=== PATIENT | male | born 1995 | race Caucasian/White ===

== ENCOUNTER 2018-06-09 11:17 | Emergency (ER) | payer SELFPAY ==
[~2018-06-09] VITALS: Ht 180.3 cm; Wt 70.5 kg
[~2018-06-09 11:17] MED LIST: FERROUS SU325 MG/TAB PO; PROTONIX 40MG T40 MG PO
[2018-06-09 11:31] VITALS: TEMP 98.2
[2018-06-09] MEDS ORDERED: ZYRTEC 10MG10 MG PO (11:50)
[2018-06-09 12:19] LABS: BASO % 0.6 % (0.0-2.0); EOS # 0.1 (0.0-0.7); EOS % 2.1 % (0-4.0); GRAN # 4.5 (1.4-6.5); LYMPH % 16.5 % (20.0-51.0); MEAN CELL VOLUME 69 fl (80.0-100.0); MEAN CORPUSCULAR HGB CONC 27 g/dl (33.0-37.0); MONO # 0.6 (0.1-0.6); MONO % 9.5 % (1.7-9.3); PLATELET COUNT 293 K/mm3 (130-400); RED BLOOD COUNT 4.97 M/mm3 (4.20-5.60); REDCELL DISTRIBUTION WIDTH-CV 29.8 % (11.5-14.5)
[2018-06-09 12:23] LABS: HEMATOCRIT 34.5 % (42.0-52.0); HEMOGLOBIN 9.4 g/dl (13.5-18.0); MEAN CORPUSCULAR HEMOGLOBIN 19 pg (27.0-31.0)
[2018-06-09 12:27] LABS: ALANINE AMINOTRANSFERASE 33 U/L (21-72); ALBUMIN 5.2 gm/dL (3.5-5.0); ALKALINE PHOSPHATASE 39 U/L (50-136); ANION GAP 11 mmol/L (7-16); AST,SGOT 25 U/L (15-37); BILIRUBIN,TOTAL 1.6 mg/dL (0.0-1.0); BLOOD UREA NITROGEN 14 mg/dL (9-20); CARBON DIOXIDE 27 mmol/L (22-30); CHLORIDE 102 mmol/L (98-107); CREATININE, serum 0.76 mg/dL (0.66-1.25); GLUCOSE 97 mg/dL (74-106); SODIUM 141 mmol/L (137-145)
[2018-06-09 12:33] LABS: C-REACTIVE PROTEIN < 0.5 mg/dL (0.0-0.9)
[2018-06-09 12:58] VITALS: BP 117/64; PULSE 64
== END 2018-06-09 12:59 | disposition home or self-care (01) ==
LOC: COL.ER 11:17
PROVIDERS: Family Medicine
DX: K92.2 Gastrointestinal hemorrhage, unspecified (principal); D64.9 Anemia, unspecified
CPT/HCPCS: J7030

== ENCOUNTER 2018-06-12 13:54 | Emergency (ER) | payer SELFPAY ==
[~2018-06-12] VITALS: Ht 180.3 cm; Wt 70.5 kg
[~2018-06-12 13:54] MED LIST changes: +ZYRTEC 10MG10 MG PO
[2018-06-12 13:59] VITALS: TEMP 98.1
[2018-06-12 14:30] LABS: COLLECTION METHOD CLEAN CATCH
[2018-06-12 14:38] LABS: MUCOUS Present /lpf; PH 5 (5-8); SQUAMOUS EPITHELIAL 0-2 /hpf; URINE APPEARANCE Clear; URINE BACTERIA None Seen /hpf; URINE BILIRUBIN Negative (NEGATIVE); URINE BLOOD Negative (NEGATIVE); URINE COLOR Yellow; URINE GLUCOSE Negative (NEGATIVE); URINE KETONE Negative (NEGATIVE); URINE LEUKOCYTE ESTERASE Negative (NEGATIVE); URINE NITRATE Negative (NEGATIVE); URINE PROTEIN(semi-quant) Negative (NEGATIVE); URINE RBC 0-2 /hpf; URINE UROBILINOGEN Negative (NEGATIVE)
[2018-06-12 14:40] LABS: BASO % 0.5 % (0.0-2.0); EOS # 0.2 (0.0-0.7); EOS % 3.2 % (0-4.0); GRAN # 5.1 (1.4-6.5); GRAN % 70.1 % (42.2-75.2); HEMATOCRIT 33.5 % (42.0-52.0); HEMOGLOBIN 9.2 g/dl (13.5-18.0); LYMPH # 1.2 (1.2-3.4); MEAN CELL VOLUME 70 fl (80.0-100.0); MEAN CORPUSCULAR HEMOGLOBIN 19 pg (27.0-31.0); MEAN CORPUSCULAR HGB CONC 28 g/dl (33.0-37.0); MONO # 0.7 (0.1-0.6); MONO % 8.9 % (1.7-9.3); PLATELET COUNT 265 K/mm3 (130-400); RED BLOOD COUNT 4.76 M/mm3 (4.20-5.60); REDCELL DISTRIBUTION WIDTH-CV 29.2 % (11.5-14.5)
[2018-06-12] MEDS ORDERED: CARAFATE 1GM1 G PO (14:51)
[2018-06-12 15:00] LABS: ALANINE AMINOTRANSFERASE 26 U/L (21-72); ALBUMIN 4.7 gm/dL (3.5-5.0); ALKALINE PHOSPHATASE 48 U/L (50-136); ANION GAP 7 mmol/L (7-16); AST,SGOT 21 U/L (15-37); BLOOD UREA NITROGEN 12 mg/dL (9-20); C-REACTIVE PROTEIN < 0.5 mg/dL (0.0-0.9); CALCIUM 9.3 mg/dL (8.4-10.2); CARBON DIOXIDE 29 mmol/L (22-30); CHLORIDE 104 mmol/L (98-107); CREATININE, serum 0.73 mg/dL (0.66-1.25); GLUCOSE 103 mg/dL (74-106); LIPASE 34 U/L (23-300); POTASSIUM 3.7 mmol/L (3.4-5.0); SODIUM 140 mmol/L (137-145); TOTAL PROTEIN 8.1 gm/dL (6.4-8.2)
[2018-06-12 15:10] VITALS: BP 119/81; PULSE 66
== END 2018-06-12 15:11 | disposition home or self-care (01) ==
LOC: COL.ER 13:54
PROVIDERS: Physician Assistant
DX: R10.13 Epigastric pain (principal); Z87.891 Personal history of nicotine dependence

== ENCOUNTER 2018-08-19 06:49 | Emergency (ER) | payer SELFPAY ==
[~2018-08-19] VITALS: Ht 180.3 cm; Wt 72.7 kg
[~2018-08-19 06:49] MED LIST changes: +CARAFATE 1GM1 G PO
[2018-08-19 06:54] VITALS: TEMP 97.6
[2018-08-19 07:11] LABS: BASO # 0.1 (0.0-0.2); BASO % 0.9 % (0.0-2.0); EOS # 0.1 (0.0-0.7); EOS % 2.1 % (0-4.0); GRAN # 2.7 (1.4-6.5); GRAN % 50.6 % (42.2-75.2); HEMATOCRIT 34.5 % (42.0-52.0); HEMOGLOBIN 9.7 g/dl (13.5-18.0); LYMPH # 1.8 (1.2-3.4); LYMPH % 33.3 % (20.0-51.0); MEAN CELL VOLUME 66 fl (80.0-100.0); MEAN CORPUSCULAR HEMOGLOBIN 19 pg (27.0-31.0); MEAN CORPUSCULAR HGB CONC 28 g/dl (33.0-37.0); MEAN PLATELET VOLUME 9.5 fl (7.4-10.4); MONO # 0.7 (0.1-0.6); MONO % 12.9 % (1.7-9.3); PLATELET COUNT 291 K/mm3 (130-400); RED BLOOD COUNT 5.22 M/mm3 (4.20-5.60); REDCELL DISTRIBUTION WIDTH-CV 16.8 % (11.5-14.5)
[2018-08-19 07:24] LABS: ALBUMIN 4.6 gm/dL (3.5-5.0); BILIRUBIN,TOTAL 0.7 mg/dL (0.0-1.0); CALCIUM 9.5 mg/dL (8.4-10.2); CREATININE, serum 0.86 mg/dL (0.66-1.25); POTASSIUM 3.6 mmol/L (3.4-5.0)
[2018-08-19 09:06] VITALS: BP 115/59; PULSE 60
--- NOTE | 2018-08-19 10:43 | NUR ---
SW consulted for Financial concerns and self pay concern. SW's met with patient about director of student financial services. SW made a referral to Connie to contact patient. Patient no longer works at the [employer]. Works for [employer]. Patient indicated that his contact info is
== END 2018-08-19 09:07 | disposition home or self-care (01) ==
LOC: COL.ER 06:49
PROVIDERS: Emergency Medicine
DX: K92.2 Gastrointestinal hemorrhage, unspecified (principal)

== ENCOUNTER 2019-01-21 23:23 | Inpatient (IN) | payer SELFPAY ==
[~2019-01-21] VITALS: Ht 180.3 cm; Wt 72.1 kg
[2019-01-22] VITALS (14 sets, daily range): BP systolic 103–128; BP diastolic 43–69; PULSE 50–86; TEMP 97.4–98
[2019-01-22 00:02] LABS: BASO % 0.7 % (0.0-2.0); EOS # 0.1 (0.0-0.7); EOS % 1.4 % (0-4.0); GRAN # 2.2 (1.4-6.5); GRAN % 50.9 % (42.2-75.2); LYMPH # 1.5 (1.2-3.4); LYMPH % 34.6 % (20.0-51.0); MEAN CELL VOLUME 60 fl (80.0-100.0); MEAN CORPUSCULAR HGB CONC 25 g/dl (33.0-37.0); MEAN PLATELET VOLUME 10.7 fl (7.4-10.4); MONO # 0.5 (0.1-0.6); MONO % 12.2 % (1.7-9.3); PLATELET COUNT 275 K/mm3 (130-400); RED BLOOD COUNT 3.76 M/mm3 (4.20-5.60); REDCELL DISTRIBUTION WIDTH-CV 19.8 % (11.5-14.5)
[2019-01-22 00:03] LABS: HEMATOCRIT 22.6 % (42.0-52.0); MEAN CORPUSCULAR HEMOGLOBIN 15 pg (27.0-31.0)
[2019-01-22 00:04] LABS: HEMOGLOBIN 5.7 g/dl (13.5-18.0)
[2019-01-22 00:13] LABS: ALBUMIN 4.4 gm/dL (3.5-5.0); BILIRUBIN,TOTAL 0.7 mg/dL (0.0-1.0); CALCIUM 9.2 mg/dL (8.4-10.2); CREATININE, serum 0.8 (0.66-1.25); POTASSIUM 3.7 mmol/L (3.4-5.0); TOTAL PROTEIN 7.3 gm/dL (6.4-8.2)
--- NOTE | 2019-01-22 01:00 | NUR ---
Pt arrived to room 308, transferred per wheelchair by ED staff. Pt awake, a&o, cooperative c cares. Pt denies pain or any other c/o at this time. IV patent. Pt oriented to room, unit policies et current POC. Questions invited et answered, pt verbalizes understanding. No needs at this time. Call light in reach, will continue c admit process.
[2019-01-22 01:08] LABS: INR 1.5 (0.8-3.0); PROTHROMBIN TIME 17.9 SECONDS (9.7-12.8)
[2019-01-22 01:11] LABS: PARTIAL THROMBOPLASTIN TIME 29.1 SECONDS (26.0-37.0)
--- NOTE | 2019-01-22 02:10 | NUR ---
Consent obtained et first unit PRBC transfusion started at this time. Reviewed s/s transfusion reaction c pt, pt verbalizes understanding. VS WNL. Will remain at bedside for first 15min.
--- NOTE | 2019-01-22 04:45 | NUR ---
First unit PRBC complete. No s/s transfusion reaction. VS WNL.
--- NOTE | 2019-01-22 05:20 | NUR ---
Second unit PRBC transfusion started at this time. VS WNL. Will remain at bedside for first 15min.
--- NOTE | 2019-01-22 07:34 | NUR ---
Transfusion complete. Patient tolerated well. VSS. A&O. No further needs expressed from patient. Call light within reach
--- NOTE | 2019-01-22 07:45 | NUR ---
Assessment complete. Patient A&Ox4. Denies pain and discomfort. IV CDI, blood transfusion infusing, patient tolerating well. VSS. No further needs expressed from patient. Call light within reach
[2019-01-22 08:00] LABS: COLLECTION METHOD CLEAN CATCH
[2019-01-22 08:07] LABS: MUCOUS Present /lpf; PH 6 (5-8); SQUAMOUS EPITHELIAL None Seen /hpf; URINE APPEARANCE Clear; URINE BACTERIA None Seen /hpf; URINE BILIRUBIN Negative (NEGATIVE); URINE BLOOD Negative (NEGATIVE); URINE COLOR Yellow; URINE GLUCOSE Negative (NEGATIVE); URINE KETONE Negative (NEGATIVE); URINE LEUKOCYTE ESTERASE Negative (NEGATIVE); URINE NITRATE Negative (NEGATIVE); URINE PROTEIN(semi-quant) Negative (NEGATIVE); URINE RBC 0-2 /hpf; URINE UROBILINOGEN Negative (NEGATIVE)
--- NOTE | 2019-01-22 09:54 | NUR ---
Initial visit; Patient thanked Pharmaceutical Representative for looking in on him and both he and his Mom thanked Pharmaceutical Representative for offering spiritual care.
[2019-01-22 11:16] LABS: BASO # 0.1 (0.0-0.2); BASO % 1.2 % (0.0-2.0); EOS # 0.1 (0.0-0.7); EOS % 1.2 % (0-4.0); GRAN # 2.7 (1.4-6.5); GRAN % 62.4 % (42.2-75.2); LYMPH % 23.2 % (20.0-51.0); MEAN CELL VOLUME 63 fl (80.0-100.0); MEAN CORPUSCULAR HGB CONC 27 g/dl (33.0-37.0); MEAN PLATELET VOLUME 9.9 fl (7.4-10.4); MONO # 0.5 (0.1-0.6); MONO % 11.8 % (1.7-9.3); PLATELET COUNT 274 K/mm3 (130-400); RED BLOOD COUNT 4.68 M/mm3 (4.20-5.60); REDCELL DISTRIBUTION WIDTH-CV 22.6 % (11.5-14.5)
[2019-01-22 11:20] LABS: HEMATOCRIT 29.3 % (42.0-52.0); HEMOGLOBIN 7.8 g/dl (13.5-18.0); MEAN CORPUSCULAR HEMOGLOBIN 17 pg (27.0-31.0)
[2019-01-22 11:34] LABS: LACTATE DEHYDROGENASE 301 U/L (313-618)
[2019-01-22 11:35] LABS: CALCIUM 9.4 mg/dL (8.4-10.2); CREATININE, serum 0.69 (0.66-1.25); POTASSIUM 3.9 mmol/L (3.4-5.0)
--- NOTE | 2019-01-22 11:38 | NUR ---
SW attended clinical rounds to discuss discharge planning. Patient lives independently at home. Patient does not have a PCP but would like to get set up with one at the [facility]. Patient's preferred pharmacy is [facility]. Patient is independent with all ADLs and does not require home health or DME. Patient will be seen by the financial counselor before discharge. SW does not anticipate any discharge needs.
[2019-01-22 11:47] LABS: IRON,SERUM 56 ug/dL (35-150)
[2019-01-22 11:54] LABS: TOTAL IRON BINDING CAPACITY 431 ug/dL (261-462)
[2019-01-22 12:08] LABS: FERRITIN 3 ng/mL (18-464)
--- NOTE | 2019-01-22 12:15 | NUR ---
Patient taken by wheelchair to procedure. No further needs expressed from patient.
--- NOTE | 2019-01-22 17:36 | NUR ---
Patient had an uneventful day. Received 2 units blood transfusion and tolerated well. Denies pain and discomfort. A&Ox4. IV CDI. VSS. Diet changed to clear liquid and patient tolerating. No further needs expressed from patient. Call light within reach
--- NOTE | 2019-01-22 19:15 | NUR ---
Shift assessment complete. Pt resting in bed, awake, a&o, cooperative c cares. Visitor at bedside. Pt denies pain or any other c/o. INT patent. Tele in place. Pt denies needs. Call light in reach, will monitor.
[2019-01-23 00:39] LABS: HAPTOGLOBIN 117 mg/dL (36-195)
[2019-01-23 03:03] VITALS: BP 114/56; PULSE 56; TEMP 98.5
[2019-01-23 06:10] LABS: BASO % 0.7 % (0.0-2.0); EOS # 0.1 (0.0-0.7); GRAN # 3.4 (1.4-6.5); GRAN % 55.6 % (42.2-75.2); LYMPH # 1.8 (1.2-3.4); MEAN CELL VOLUME 63 fl (80.0-100.0); MEAN CORPUSCULAR HGB CONC 26 g/dl (33.0-37.0); MONO # 0.7 (0.1-0.6); MONO % 11.4 % (1.7-9.3); PLATELET COUNT 264 K/mm3 (130-400); RED BLOOD COUNT 4.47 M/mm3 (4.20-5.60); REDCELL DISTRIBUTION WIDTH-CV 23.3 % (11.5-14.5)
[2019-01-23 06:15] LABS: HEMATOCRIT 28.1 % (42.0-52.0); HEMOGLOBIN 7.4 g/dl (13.5-18.0); MEAN CORPUSCULAR HEMOGLOBIN 17 pg (27.0-31.0)
[2019-01-23 06:25] LABS: CALCIUM 9.2 mg/dL (8.4-10.2); CREATININE, serum 0.68 (0.66-1.25); POTASSIUM 3.8 mmol/L (3.4-5.0)
[2019-01-23 07:38] VITALS: BP 117/55; PULSE 64; TEMP 98
[2019-01-23] MEDS ORDERED: FERROUS SU325 MG/TAB PO (09:10)
[2019-01-23] MEDS ORDERED: PROTONIX 40MG T40 MG PO (09:11)
--- NOTE | 2019-01-23 10:18 | NUR ---
Follow-up visit; Patient cheerful and appears glad when Soaping Machine Back Tender sticks her head in his room with a friendly "Hi," in the morning.
--- NOTE | 2019-01-23 10:29 | NUR ---
Pt assessment complete and charted. Medications administerd per MAR. Pt denies chest pain, dizziness, N/V, SOB. Pt denies pain. RFA IV patent. Pt independent in room, on room air. Denies needs at this time. CAll light within reach.
[2019-01-23 11:42] VITALS: BP 114/52; PULSE 58; TEMP 97.8
--- NOTE | 2019-01-23 14:00 | NUR ---
Pt discharged home. Discharge instructions discussed and reviewed, all questions answered. LFA INT IV removed. Pt IV flushes well. Upon removal of IV, this nurse noticed forearm seemed a little swollen. Arm was not red or warm. Pt states it "doesn't hurt to touch, slightly tender". Informed pt to keep eye on forearm and place warm pack on arm. Pt only received Nulecit today. No other needs at this time. Escorted out by this nurse. Pt ambulatory.
[2019-01-24] MEDS ORDERED: ATIVAN 0.50.5 MG/TAB PO (22:26)
== END 2019-01-23 14:00 | disposition home or self-care (01) | DRG 812 ==
LOC: COL.ER 23:23 → MEDICAL 01-22 00:27
PROVIDERS: Emergency Medicine; Internal Medicine; Nurse Practitioner Family; Physician Assistant; ADMIT Internal Medicine
PROC: 30233N1 Transfusion of Nonautologous Red Blood Cells into Peripheral Vein, Percutaneous Approach (ICD-10-PCS; principal; 2019-01-22)
DX: D50.0 Iron deficiency anemia secondary to blood loss (chronic) (principal); K62.5 Hemorrhage of anus and rectum; K64.9 Unspecified hemorrhoids; K20.9 Esophagitis, unspecified; R79.1 Abnormal coagulation profile; E87.6 Hypokalemia; Z87.891 Personal history of nicotine dependence; Z59.9 Problem related to housing and economic circumstances, unspecified
CPT/HCPCS: 99222-AI; 99238; A9512; C9113; J2916; J7030; P9016

== ENCOUNTER 2019-01-24 20:59 | Emergency (ER) | payer SELFPAY ==
[~2019-01-24] VITALS: Ht 180.3 cm; Wt 72.7 kg
[2019-01-24 21:10] VITALS: TEMP 99.3
[2019-01-24 21:30] LABS: BASO # 0.1 (0.0-0.2); BASO % 0.6 % (0.0-2.0); EOS # 0.2 (0.0-0.7); EOS % 1.7 % (0-4.0); GRAN # 6.3 (1.4-6.5); GRAN % 69.1 % (42.2-75.2); LYMPH # 1.6 (1.2-3.4); LYMPH % 17.1 % (20.0-51.0); MEAN CELL VOLUME 64 fl (80.0-100.0); MEAN CORPUSCULAR HGB CONC 27 g/dl (33.0-37.0); MONO # 0.9 (0.1-0.6); MONO % 10.2 % (1.7-9.3); PLATELET COUNT 297 K/mm3 (130-400); RED BLOOD COUNT 4.66 M/mm3 (4.20-5.60); REDCELL DISTRIBUTION WIDTH-CV 25.3 % (11.5-14.5)
[2019-01-24 21:40] LABS: HEMOGLOBIN 8.1 g/dl (13.5-18.0); MEAN CORPUSCULAR HEMOGLOBIN 17 pg (27.0-31.0)
[2019-01-24 21:45] LABS: ALANINE AMINOTRANSFERASE 13 U/L (21-72); ALBUMIN 4.9 gm/dL (3.5-5.0); ALKALINE PHOSPHATASE 49 U/L (50-136); ANION GAP 14 mmol/L (7-16); AST,SGOT 25 U/L (15-37); BILIRUBIN,TOTAL 0.9 mg/dL (0.0-1.0); BLOOD UREA NITROGEN 15 mg/dL (9-20); CALCIUM 9.4 mg/dL (8.4-10.2); CARBON DIOXIDE 24 mmol/L (22-30); CHLORIDE 101 mmol/L (98-107); GLUCOSE 121 mg/dL (74-106); POTASSIUM 3.6 mmol/L (3.4-5.0); SODIUM 138 mmol/L (137-145); TOTAL PROTEIN 8.3 gm/dL (6.4-8.2)
[2019-01-24 21:51] LABS: C-REACTIVE PROTEIN < 0.5 mg/dL (0.0-0.9)
[2019-01-24] MEDS ORDERED: ATIVAN 0.50.5 MG/TAB PO (22:26)
[2019-01-24 22:54] LABS: COLLECTION METHOD CLEAN CATCH
[2019-01-24 23:05] LABS: MUCOUS Present /lpf; PH 5 (5-8); SQUAMOUS EPITHELIAL None Seen /hpf; URINE APPEARANCE Hazy; URINE BACTERIA None Seen /hpf; URINE BILIRUBIN Negative (NEGATIVE); URINE BLOOD Negative (NEGATIVE); URINE COLOR Yellow; URINE GLUCOSE Negative (NEGATIVE); URINE KETONE Negative (NEGATIVE); URINE LEUKOCYTE ESTERASE Negative (NEGATIVE); URINE NITRATE Negative (NEGATIVE); URINE PROTEIN(semi-quant) Negative (NEGATIVE); URINE RBC 0-2 /hpf; URINE UROBILINOGEN Negative (NEGATIVE)
[2019-01-24 23:13] VITALS: BP 127/73; PULSE 78
== END 2019-01-24 23:13 | disposition home or self-care (01) ==
LOC: COL.ER 20:59
PROVIDERS: Emergency Medicine
DX: M54.5 Low back pain (principal); D64.9 Anemia, unspecified; M79.10 Myalgia, unspecified site
CPT/HCPCS: J2060; J7030

== ENCOUNTER 2019-02-05 10:59 | Emergency (ER) | payer SELFPAY ==
[~2019-02-05] VITALS: Ht 177.8 cm; Wt 74.5 kg
[~2019-02-05 10:59] MED LIST changes: +ATIVAN 0.50.5 MG/TAB PO
[2019-02-05 11:11] VITALS: TEMP 98.2
[2019-02-05 11:32] LABS: EOS # 0.1 (0.0-0.7); EOS % 2.7 % (0-4.0); GRAN # 1.6 (1.4-6.5); LYMPH # 0.8 (1.2-3.4); LYMPH % 28.7 % (20.0-51.0); MEAN CELL VOLUME 72 fl (80.0-100.0); MEAN CORPUSCULAR HGB CONC 27 g/dl (33.0-37.0); MEAN PLATELET VOLUME 9.7 fl (7.4-10.4); MONO # 0.4 (0.1-0.6); MONO % 13.3 % (1.7-9.3); PLATELET COUNT 262 K/mm3 (130-400); RED BLOOD COUNT 4.91 M/mm3 (4.20-5.60)
[2019-02-05 11:38] LABS: INR 1.4 (0.8-3.0); PROTHROMBIN TIME 15.9 SECONDS (9.7-12.8)
[2019-02-05 11:40] LABS: PARTIAL THROMBOPLASTIN TIME 29.3 SECONDS (26.0-37.0)
[2019-02-05 11:41] LABS: ALBUMIN 4.6 gm/dL (3.5-5.0); BILIRUBIN,TOTAL 0.9 mg/dL (0.0-1.0); CALCIUM 9.3 mg/dL (8.4-10.2); CREATININE, serum 0.76 (0.66-1.25); POTASSIUM 4.2 mmol/L (3.4-5.0)
[2019-02-05 11:52] LABS: HEMATOCRIT 35.5 % (42.0-52.0); HEMOGLOBIN 9.6 g/dl (13.5-18.0); MEAN CORPUSCULAR HEMOGLOBIN 20 pg (27.0-31.0)
[2019-02-05 13:46] LABS: STREP SCREEN NEGATIVE
[2019-02-05 13:50] LABS: MONOSCREEN NEGATIVE
[2019-02-05 14:36] VITALS: BP 122/73; PULSE 62
== END 2019-02-05 14:36 | disposition home or self-care (01) ==
LOC: COL.ER 10:59
PROVIDERS: Emergency Medicine
DX: K64.4 Residual hemorrhoidal skin tags (principal); D64.9 Anemia, unspecified; D72.819 Decreased white blood cell count, unspecified; F17.210 Nicotine dependence, cigarettes, uncomplicated; F12.90 Cannabis use, unspecified, uncomplicated

== ENCOUNTER 2019-02-22 14:29 | Emergency (ER) | payer SELFPAY ==
[~2019-02-22] VITALS: Ht 180.3 cm; Wt 71.8 kg
[2019-02-22 14:42] VITALS: TEMP 97.6
[2019-02-22 15:10] LABS: BASO # 0.1 (0.0-0.2); BASO % 1.4 % (0.0-2.0); EOS # 0.2 (0.0-0.7); EOS % 4.8 % (0-4.0); GRAN # 2.1 (1.4-6.5); LYMPH # 1.3 (1.2-3.4); LYMPH % 29.8 % (20.0-51.0); MEAN CELL VOLUME 74 fl (80.0-100.0); MEAN CORPUSCULAR HGB CONC 28 g/dl (33.0-37.0); MEAN PLATELET VOLUME 9.8 fl (7.4-10.4); MONO # 0.6 (0.1-0.6); MONO % 14.8 % (1.7-9.3); PLATELET COUNT 281 K/mm3 (130-400); RED BLOOD COUNT 4.56 M/mm3 (4.20-5.60); REDCELL DISTRIBUTION WIDTH-CV 25.8 % (11.5-14.5)
[2019-02-22 15:11] LABS: HEMATOCRIT 33.6 % (42.0-52.0); HEMOGLOBIN 9.4 g/dl (13.5-18.0); MEAN CORPUSCULAR HEMOGLOBIN 21 pg (27.0-31.0)
[2019-02-22 15:19] LABS: ALBUMIN 4.9 gm/dL (3.5-5.0); BILIRUBIN,TOTAL 0.7 mg/dL (0.0-1.0); CREATININE, serum 0.77 (0.66-1.25); POTASSIUM 3.7 mmol/L (3.4-5.0)
[2019-02-22 16:04] VITALS: PULSE 60
[2019-02-22 16:32] VITALS: BP 119/62
== END 2019-02-22 16:32 | disposition home or self-care (01) ==
LOC: COL.ER 14:29
PROVIDERS: Emergency Medicine
DX: D50.9 Iron deficiency anemia, unspecified (principal); K64.9 Unspecified hemorrhoids; F17.210 Nicotine dependence, cigarettes, uncomplicated; F12.90 Cannabis use, unspecified, uncomplicated

== ENCOUNTER 2019-03-31 21:59 | Emergency (ER) | payer SELFPAY ==
[~2019-03-31] VITALS: Ht 177.8 cm; Wt 71.4 kg
[2019-03-31 22:50] LABS: BASO # 0.1 (0.0-0.2); BASO % 1.2 % (0.0-2.0); EOS # 0.3 (0.0-0.7); GRAN # 3.3 (1.4-6.5); GRAN % 54.9 % (42.2-75.2); LYMPH # 1.6 (1.2-3.4); MEAN CELL VOLUME 68 fl (80.0-100.0); MEAN CORPUSCULAR HGB CONC 28 g/dl (33.0-37.0); MEAN PLATELET VOLUME 10.4 fl (7.4-10.4); MONO # 0.7 (0.1-0.6); MONO % 11.7 % (1.7-9.3); PLATELET COUNT 310 K/mm3 (130-400); REDCELL DISTRIBUTION WIDTH-CV 20.1 % (11.5-14.5)
[2019-03-31 22:51] LABS: HEMOGLOBIN 8.3 g/dl (13.5-18.0); MEAN CORPUSCULAR HEMOGLOBIN 19 pg (27.0-31.0)
[2019-03-31 22:56] LABS: ALBUMIN 4.9 gm/dL (3.5-5.0); BILIRUBIN,TOTAL 0.7 mg/dL (0.0-1.0); CALCIUM 9.1 mg/dL (8.4-10.2); CREATININE, serum 0.73 (0.66-1.25); POTASSIUM 3.9 mmol/L (3.4-5.0)
[2019-04-01] VITALS (13 sets, daily range): BP systolic 99–127; BP diastolic 49–71; PULSE 54–59; TEMP 97.7–98.1
[2019-04-01 02:30] LABS: COLLECTION METHOD CLEAN CATCH
[2019-04-01 02:36] LABS: MUCOUS Present /lpf; PH 6 (5-8); SQUAMOUS EPITHELIAL 0-2 /hpf; URINE APPEARANCE Hazy; URINE BACTERIA None Seen /hpf; URINE BILIRUBIN Negative (NEGATIVE); URINE BLOOD Negative (NEGATIVE); URINE COLOR Yellow; URINE GLUCOSE Negative (NEGATIVE); URINE KETONE Trace (NEGATIVE); URINE LEUKOCYTE ESTERASE Negative (NEGATIVE); URINE NITRATE Negative (NEGATIVE); URINE PROTEIN(semi-quant) 1+ (NEGATIVE); URINE RBC 0-2 /hpf; URINE UROBILINOGEN Negative (NEGATIVE)
== END 2019-04-01 05:17 | disposition home or self-care (01) ==
LOC: COL.ER 21:59
PROVIDERS: Emergency Medicine
DX: D64.9 Anemia, unspecified (principal); F17.220 Nicotine dependence, chewing tobacco, uncomplicated
CPT/HCPCS: C9113; J7030; P9016

== ENCOUNTER 2019-05-27 16:10 | Emergency (ER) | payer OTHER ==
[~2019-05-27] VITALS: Ht 177.8 cm; Wt 72.7 kg
[2019-05-27 16:23] VITALS: TEMP 98.5
[2019-05-27 16:59] LABS: BASO # 0.1 (0.0-0.2); BASO % 0.9 % (0.0-2.0); EOS # 0.1 (0.0-0.7); EOS % 2.1 % (0-4.0); GRAN # 3.9 (1.4-6.5); GRAN % 69.1 % (42.2-75.2); LYMPH % 18.1 % (20.0-51.0); MEAN CELL VOLUME 65 fl (80.0-100.0); MEAN CORPUSCULAR HGB CONC 27 g/dl (33.0-37.0); MEAN PLATELET VOLUME 9.8 fl (7.4-10.4); MONO # 0.5 (0.1-0.6); MONO % 9.6 % (1.7-9.3); PLATELET COUNT 272 K/mm3 (130-400); RED BLOOD COUNT 5.26 M/mm3 (4.20-5.60)
[2019-05-27 17:08] LABS: ALANINE AMINOTRANSFERASE 34 U/L (21-72); ALBUMIN 4.9 gm/dL (3.5-5.0); ALKALINE PHOSPHATASE 50 U/L (50-136); ANION GAP 10 mmol/L (7-16); AST,SGOT 24 U/L (15-37); BILIRUBIN,TOTAL 1.2 mg/dL (0.0-1.0); BLOOD UREA NITROGEN 18 mg/dL (9-20); C-REACTIVE PROTEIN < 0.5 mg/dL (0.0-0.9); CALCIUM 9.5 mg/dL (8.4-10.2); CARBON DIOXIDE 28 mmol/L (22-30); CHLORIDE 100 mmol/L (98-107); CREATININE, serum 0.85 (0.66-1.25); GLUCOSE 102 mg/dL (74-106); LIPASE 29 U/L (23-300); SODIUM 138 mmol/L (137-145); TOTAL PROTEIN 8.4 gm/dL (6.4-8.2)
[2019-05-27 17:10] LABS: HEMATOCRIT 34.1 % (42.0-52.0); HEMOGLOBIN 9.3 g/dl (13.5-18.0); MEAN CORPUSCULAR HEMOGLOBIN 18 pg (27.0-31.0)
[2019-05-27 18:22] VITALS: BP 135/82; PULSE 82
== END 2019-05-27 18:24 | disposition home or self-care (01) ==
LOC: COL.ER 16:10
PROVIDERS: Emergency Medicine
DX: D64.9 Anemia, unspecified (principal); R53.1 Weakness; F17.210 Nicotine dependence, cigarettes, uncomplicated
CPT/HCPCS: J7030

== ENCOUNTER 2019-08-06 17:47 | Emergency (ER) | payer SELFPAY ==
[~2019-08-06] VITALS: Ht 177.8 cm; Wt 75.9 kg
[2019-08-06 17:58] VITALS: BP 119/71; TEMP 98.1
[2019-08-06 18:19] LABS: BASO # 0.1 (0.0-0.2); BASO % 1.2 % (0.0-2.0); EOS # 0.1 (0.0-0.7); EOS % 1.9 % (0-4.0); GRAN # 3.3 (1.4-6.5); GRAN % 63.2 % (42.2-75.2); HEMATOCRIT 31.4 % (42.0-52.0); HEMOGLOBIN 8.3 g/dl (13.5-18.0); LYMPH # 1.1 (1.2-3.4); LYMPH % 21.6 % (20.0-51.0); MEAN CELL VOLUME 64 fl (80.0-100.0); MEAN CORPUSCULAR HEMOGLOBIN 17 pg (27.0-31.0); MEAN CORPUSCULAR HGB CONC 26 g/dl (33.0-37.0); MEAN PLATELET VOLUME 9.9 fl (7.4-10.4); MONO # 0.6 (0.1-0.6); MONO % 11.7 % (1.7-9.3); PLATELET COUNT 278 K/mm3 (130-400); RED BLOOD COUNT 4.92 M/mm3 (4.20-5.60); REDCELL DISTRIBUTION WIDTH-CV 18.2 % (11.5-14.5)
[2019-08-06 18:44] LABS: ALBUMIN 4.7 gm/dL (3.5-5.0); BILIRUBIN,TOTAL 0.7 mg/dL (0.0-1.0); CALCIUM 8.9 mg/dL (8.4-10.2); CREATININE, serum 0.84 (0.66-1.25); POTASSIUM 4.5 mmol/L (3.4-5.0); TOTAL PROTEIN 7.9 gm/dL (6.4-8.2)
[2019-08-06 19:06] VITALS: PULSE 71
== END 2019-08-06 19:07 | disposition home or self-care (01) ==
LOC: COL.ER 17:47
PROVIDERS: Nurse Practitioner
DX: D64.9 Anemia, unspecified (principal); F32.9 Major depressive disorder, single episode, unspecified; F17.210 Nicotine dependence, cigarettes, uncomplicated

== ENCOUNTER 2019-11-17 02:17 | Emergency (ER) | payer SELFPAY ==
[~2019-11-17] VITALS: Ht 177.8 cm; Wt 80.9 kg
[2019-11-17 02:33] VITALS: BP 142/66; PULSE 91; TEMP 98
== END 2019-11-17 03:30 | disposition home or self-care (01) ==
LOC: COL.ER 02:17
DX: S93.401A Sprain of unspecified ligament of right ankle, initial encounter (principal); F17.210 Nicotine dependence, cigarettes, uncomplicated; X50.1XXA Overexertion from prolonged static or awkward postures, initial encounter; Y92.009 Unspecified place in unspecified non-institutional (private) residence as the place of occurrence of the external cause

== ENCOUNTER 2020-04-12 01:28 | Emergency (ER) | payer SELFPAY ==
[~2020-04-12] VITALS: Ht 182.9 cm; Wt 74.1 kg
[2020-04-12 03:02] VITALS: BP 114/70; PULSE 78; TEMP 98
== END 2020-04-12 03:02 | disposition home or self-care (01) ==
LOC: COL.ER 01:28
DX: S60.211A Contusion of right wrist, initial encounter (principal); F17.200 Nicotine dependence, unspecified, uncomplicated; W22.8XXA Striking against or struck by other objects, initial encounter

== ENCOUNTER 2020-09-29 14:03 | Emergency (ER) | payer SELFPAY ==
[~2020-09-29] VITALS: Ht 180.3 cm; Wt 72.7 kg
[2020-09-29 14:14] VITALS: TEMP 97.9
[2020-09-29 14:48] LABS: COLLECTION METHOD CLEAN CATCH
[2020-09-29 14:52] LABS: BASO # 0.1 (0.0-0.2); BASO % 1.1 % (0.0-2.0); EOS # 0.2 (0.0-0.7); GRAN # 3.8 (1.4-6.5); GRAN % 66.6 % (42.2-75.2); LYMPH % 17.9 % (20.0-51.0); MEAN CELL VOLUME 62 fl (80.0-100.0); MEAN CORPUSCULAR HGB CONC 27 g/dl (33.0-37.0); MONO # 0.6 (0.1-0.6); PLATELET COUNT 259 K/mm3 (130-400); REDCELL DISTRIBUTION WIDTH-CV 19.8 % (11.5-14.5)
[2020-09-29 14:53] LABS: HEMATOCRIT 32.4 % (42.0-52.0); HEMOGLOBIN 8.8 g/dl (13.5-18.0); MEAN CORPUSCULAR HEMOGLOBIN 17 pg (27.0-31.0)
[2020-09-29 14:58] LABS: MUCOUS Present /lpf; PH 7 (5-8); SQUAMOUS EPITHELIAL None Seen /hpf; URINE APPEARANCE Cloudy; URINE BACTERIA Occasional /hpf; URINE BILIRUBIN Negative (NEGATIVE); URINE BLOOD Negative (NEGATIVE); URINE COLOR Yellow; URINE GLUCOSE Negative (NEGATIVE); URINE KETONE Negative (NEGATIVE); URINE LEUKOCYTE ESTERASE Negative (NEGATIVE); URINE NITRATE Negative (NEGATIVE); URINE PROTEIN(semi-quant) 2+ (NEGATIVE); URINE UROBILINOGEN >=4.0 mg/dL (NEGATIVE)
[2020-09-29 15:03] LABS: ALANINE AMINOTRANSFERASE 22 U/L (4-49); ALBUMIN 4.9 gm/dL (3.5-5.0); ALKALINE PHOSPHATASE 50 U/L (50-136); ANION GAP 9 mmol/L (7-16); AST,SGOT 26 U/L (15-37); BILIRUBIN,TOTAL 0.7 mg/dL (0.0-1.0); BLOOD UREA NITROGEN 15 mg/dL (9-20); CALCIUM 9.4 mg/dL (8.4-10.2); CARBON DIOXIDE 28 mmol/L (22-30); CHLORIDE 101 mmol/L (98-107); CREATININE, serum 0.82 (0.66-1.25); GLUCOSE 100 mg/dL (74-106); LIPASE 57 U/L (23-300); POTASSIUM 3.9 mmol/L (3.4-5.0); SODIUM 138 mmol/L (137-145)
[2020-09-29 15:12] LABS: C-REACTIVE PROTEIN < 0.5 mg/dL (0.0-0.9)
[2020-09-29] MEDS ORDERED: NORCO 325 MG-51 TAB PO (15:35)
[2020-09-29 16:05] VITALS: BP 128/72; PULSE 72
== END 2020-09-29 16:19 | disposition home or self-care (01) ==
LOC: COL.ER 14:03
PROVIDERS: Family Medicine
DX: K92.2 Gastrointestinal hemorrhage, unspecified (principal); D50.9 Iron deficiency anemia, unspecified
CPT/HCPCS: J2405; J7120

== ENCOUNTER 2020-12-22 13:57 | Emergency (ER) | payer OTHER ==
[~2020-12-22] VITALS: Ht 180.3 cm; Wt 72.7 kg
[~2020-12-22 13:57] MED LIST changes: +NORCO 325 MG-51 TAB PO
[2020-12-22 14:10] VITALS: TEMP 98.1
[2020-12-22 15:03] LABS: BASO # 0.1 (0.0-0.2); BASO % 1.1 % (0.0-2.0); EOS # 0.1 (0.0-0.7); EOS % 1.3 % (0-4.0); GRAN # 3.5 (1.4-6.5); GRAN % 64.5 % (42.2-75.2); HEMATOCRIT 32.6 % (42.0-52.0); HEMOGLOBIN 8.8 g/dl (13.5-18.0); LYMPH # 1.2 (1.2-3.4); LYMPH % 22.7 % (20.0-51.0); MEAN CELL VOLUME 63 fl (80.0-100.0); MEAN CORPUSCULAR HEMOGLOBIN 17 pg (27.0-31.0); MEAN CORPUSCULAR HGB CONC 27 g/dl (33.0-37.0); MEAN PLATELET VOLUME 9.8 fl (7.4-10.4); MONO # 0.5 (0.1-0.6); PLATELET COUNT 271 K/mm3 (130-400); RED BLOOD COUNT 5.18 M/mm3 (4.20-5.60); REDCELL DISTRIBUTION WIDTH-CV 18.7 % (11.5-14.5)
[2020-12-22 15:26] LABS: ALBUMIN 4.7 gm/dL (3.5-5.0); BILIRUBIN,TOTAL 0.7 mg/dL (0.0-1.0); CALCIUM 9.2 mg/dL (8.4-10.2); CREATININE, serum 0.66 (0.66-1.25); POTASSIUM 4.3 mmol/L (3.4-5.0)
[2020-12-22] MEDS ORDERED: PROTONIX 40MG T40 MG PO (17:10)
[2020-12-22 17:25] VITALS: BP 121/78; PULSE 71
== END 2020-12-22 17:25 | disposition home or self-care (01) ==
LOC: COL.ER 13:57
PROVIDERS: Emergency Medicine
DX: K92.2 Gastrointestinal hemorrhage, unspecified (principal); D50.9 Iron deficiency anemia, unspecified; Z87.891 Personal history of nicotine dependence
CPT/HCPCS: J2405; J7030

== ENCOUNTER 2021-04-12 10:18 | Emergency (ER) | payer BC ==
[~2021-04-12] VITALS: Ht 180.3 cm; Wt 69.5 kg
[2021-04-12] VITALS (8 sets, daily range): BP systolic 112–116; BP diastolic 54–69; PULSE 53–56; TEMP 97.8–98.1
[2021-04-12 11:26] LABS: BASO % 0.9 % (0.0-2.0); EOS # 0.2 K/mm3 (0.0-0.7); EOS % 5.1 % (0-4.0); GRAN # 1.9 K/mm3 (1.4-6.5); GRAN % 54.3 % (42.2-75.2); MEAN CELL VOLUME 62 fl (80.0-100.0); MEAN CORPUSCULAR HGB CONC 26 g/dl (33.0-37.0); MEAN PLATELET VOLUME 9.8 fl (7.4-10.4); MONO # 0.4 K/mm3 (0.1-0.6); MONO % 11.4 % (1.7-9.3); PLATELET COUNT 246 K/mm3 (130-400); RED BLOOD COUNT 3.99 M/mm3 (4.20-5.60); REDCELL DISTRIBUTION WIDTH-CV 18.2 % (11.5-14.5)
[2021-04-12 11:38] LABS: ALBUMIN 4.3 gm/dL (3.5-5.0); BILIRUBIN,TOTAL 0.8 mg/dL (0.2-1.2); CALCIUM 9.4 mg/dL (8.4-10.2); CREATININE, serum 0.74 mg/dL (0.72-1.25); POTASSIUM 3.7 mmol/L (3.5-4.5); TOTAL PROTEIN 7.4 gm/dL (6.2-8.1)
[2021-04-12 11:45] LABS: HEMATOCRIT 24.8 % (42.0-52.0); HEMOGLOBIN 6.4 g/dl (13.5-18.0); MEAN CORPUSCULAR HEMOGLOBIN 16 pg (27.0-31.0)
--- NOTE | 2021-04-12 15:48 | NUR ---
Senior Front End Engineer met with patient and his girlfriend in ER to assist in establishing a PCP to follow patient needs. Call was made to [facility]; JESUS spoke with Kylah at [phone]. Kylah will be in touch with this worker as well as the patient to establish an appointment. JESUS will follow up with Kylah.
== END 2021-04-12 15:52 | disposition home or self-care (01) ==
LOC: COL.ER 10:18
PROVIDERS: Emergency Medicine
DX: K92.2 Gastrointestinal hemorrhage, unspecified (principal); D50.9 Iron deficiency anemia, unspecified; Z20.822 Contact with and (suspected) exposure to COVID-19
CPT/HCPCS: C9113; P9016

== ENCOUNTER 2021-07-16 17:52 | Emergency (ER) | payer BC ==
[2021-07-16] VITALS (8 sets, daily range): BP systolic 104–124; BP diastolic 45–71; PULSE 60–80; TEMP 98.1–98.4
[~2021-07-16] VITALS: Ht 180.3 cm; Wt 73.6 kg
[2021-07-16] MEDS ORDERED: KLONOPIN 1MG1 MG PO (19:04)
[2021-07-16] MEDS ORDERED: CELEXA40 MG PO (19:04)
[2021-07-16] MEDS ORDERED: NATURAL IRON65 MG (19:04)
[2021-07-16 19:14] LABS: BASO # 0.1 K/mm3 (0.0-0.2); BASO % 1.1 % (0.0-2.0); EOS # 0.1 K/mm3 (0.0-0.7); EOS % 2.6 % (0.0-4.0); GRAN # 2.6 K/mm3 (1.4-6.5); GRAN % 54.3 % (42.2-75.2); LYMPH # 1.5 K/mm3 (1.2-3.4); LYMPH % 31.6 % (20.0-51.0); MEAN CELL VOLUME 59 fl (80.0-100.0); MEAN CORPUSCULAR HGB CONC 25 g/dl (33.0-37.0); MEAN PLATELET VOLUME 9.6 fl (7.4-10.4); MONO # 0.5 K/mm3 (0.1-0.6); PLATELET COUNT 270 K/mm3 (130-400); RED BLOOD COUNT 4.14 M/mm3 (4.20-5.60); REDCELL DISTRIBUTION WIDTH-CV 19.9 % (11.5-14.5)
[2021-07-16 19:17] LABS: HEMATOCRIT 24.5 % (42.0-52.0); HEMOGLOBIN 6.1 g/dl (13.5-18.0); MEAN CORPUSCULAR HEMOGLOBIN 15 pg (27-31)
== END 2021-07-16 23:55 | disposition home or self-care (01) ==
LOC: COL.ER 17:52
PROVIDERS: Physician Assistant
DX: D64.9 Anemia, unspecified (principal); F17.200 Nicotine dependence, unspecified, uncomplicated
CPT/HCPCS: P9016

== ENCOUNTER 2021-10-06 13:07 | Emergency (ER) | payer BC ==
[~2021-10-06] VITALS: Ht 180.3 cm; Wt 75.9 kg
[~2021-10-06 13:07] MED LIST changes: +CELEXA40 MG PO; +KLONOPIN 1MG1 MG PO; +NATURAL IRON65 MG
[2021-10-06 13:15] VITALS: TEMP 98.1
[2021-10-06 13:51] LABS: BASO # 0.1 K/mm3 (0.0-0.2); BASO % 0.6 % (0.0-2.0); EOS # 0.1 K/mm3 (0.0-0.7); EOS % 1.4 % (0.0-4.0); GRAN # 5.6 K/mm3 (1.4-6.5); GRAN % 71.4 % (42.2-75.2); LYMPH # 1.2 K/mm3 (1.2-3.4); LYMPH % 14.9 % (20.0-51.0); MEAN CELL VOLUME 65 fl (80.0-100.0); MEAN CORPUSCULAR HGB CONC 27 g/dl (33.0-37.0); MONO # 0.9 K/mm3 (0.1-0.6); MONO % 11.4 % (1.7-9.3); PLATELET COUNT 269 K/mm3 (130-400); RED BLOOD COUNT 5.11 M/mm3 (4.20-5.60); REDCELL DISTRIBUTION WIDTH-CV 21.3 % (11.5-14.5)
[2021-10-06 13:52] LABS: HEMATOCRIT 33.3 % (42.0-52.0); HEMOGLOBIN 8.9 g/dl (13.5-18.0); MEAN CORPUSCULAR HEMOGLOBIN 17 pg (27-31)
[2021-10-06 13:59] LABS: STREP SCREEN NEGATIVE
[2021-10-06 14:07] LABS: MONOSCREEN NEGATIVE
[2021-10-06 14:16] LABS: ALBUMIN 4.4 gm/dL (3.5-5.0); BILIRUBIN,TOTAL 0.7 mg/dL (0.2-1.2); CREATININE, serum 0.71 mg/dL (0.72-1.25); POTASSIUM 3.8 mmol/L (3.5-4.5); TOTAL PROTEIN 8.1 gm/dL (6.2-8.1)
[2021-10-06] MEDS ORDERED: AMOXICILLIN 50500 MG PO (14:25)
[2021-10-06 14:37] VITALS: BP 123/59; PULSE 72
== END 2021-10-06 14:40 | disposition home or self-care (01) ==
LOC: COL.ER 13:07
PROVIDERS: Physician Assistant
DX: J02.9 Acute pharyngitis, unspecified (principal); D64.9 Anemia, unspecified; F17.210 Nicotine dependence, cigarettes, uncomplicated

== ENCOUNTER 2021-11-29 10:05 | Emergency (ER) | payer BC ==
[~2021-11-29] VITALS: Ht 180.3 cm; Wt 73.6 kg
[~2021-11-29 10:05] MED LIST changes: +AMOXICILLIN 50500 MG PO
[2021-11-29 10:25] VITALS: TEMP 98
[2021-11-29 10:47] LABS: BASO # 0.1 K/mm3 (0.0-0.2); BASO % 1.1 % (0.0-2.0); EOS # 0.2 K/mm3 (0.0-0.7); EOS % 3.7 % (0.0-4.0); GRAN # 2.6 K/mm3 (1.4-6.5); GRAN % 59.4 % (42.2-75.2); LYMPH % 22.3 % (20.0-51.0); MEAN CELL VOLUME 67 fl (80.0-100.0); MEAN CORPUSCULAR HGB CONC 29 g/dl (33.0-37.0); MEAN PLATELET VOLUME 9.9 fl (7.4-10.4); MONO # 0.6 K/mm3 (0.1-0.6); MONO % 13.3 % (1.7-9.3); PLATELET COUNT 277 K/mm3 (130-400); RED BLOOD COUNT 4.95 M/mm3 (4.20-5.60); REDCELL DISTRIBUTION WIDTH-CV 19.1 % (11.5-14.5)
[2021-11-29 10:48] LABS: HEMATOCRIT 32.9 % (42.0-52.0); HEMOGLOBIN 9.4 g/dl (13.5-18.0); MEAN CORPUSCULAR HEMOGLOBIN 19 pg (27-31)
[2021-11-29 10:56] LABS: COLLECTION METHOD CLEAN CATCH
[2021-11-29 11:05] LABS: MUCOUS Present (NOT PRESENT); PH 5 (5-8); SQUAMOUS EPITHELIAL 0-2 /hpf (0-10); URINE APPEARANCE Hazy (CLEAR/HAZY); URINE BACTERIA None Seen /hpf (NONE SEEN); URINE BILIRUBIN Negative (NEGATIVE); URINE BLOOD Negative (NEGATIVE); URINE COLOR Yellow (YELLOW); URINE GLUCOSE Negative (NEGATIVE); URINE KETONE Trace (NEGATIVE); URINE LEUKOCYTE ESTERASE Negative (NEGATIVE); URINE NITRATE Negative (NEGATIVE); URINE PROTEIN(semi-quant) Negative (NEGATIVE); URINE RBC 0-2 /hpf (0-2)
[2021-11-29 11:08] LABS: ALBUMIN 4.1 gm/dL (3.5-5.0); BILIRUBIN,TOTAL 0.9 mg/dL (0.2-1.2); CALCIUM 8.5 mg/dL (8.4-10.2); CREATININE, serum 0.74 mg/dL (0.72-1.25); POTASSIUM 3.8 mmol/L (3.5-4.5); TOTAL PROTEIN 7.2 gm/dL (6.2-8.1)
[2021-11-29 12:42] VITALS: PULSE 69
[2021-11-29] MEDS ORDERED: DULCOLAX STOOL100 MG PO (13:01)
[2021-11-29] MEDS ORDERED: PRIL40 PO (13:01)
[2021-11-29 13:17] VITALS: BP 117/59
== END 2021-11-29 13:17 | disposition home or self-care (01) ==
LOC: COL.ER 10:05
PROVIDERS: Nurse Practitioner Primary Care
DX: S00.83XA Contusion of other part of head, initial encounter (principal); S00.212A Abrasion of left eyelid and periocular area, initial encounter; R10.33 Periumbilical pain; F17.210 Nicotine dependence, cigarettes, uncomplicated; W18.30XA Fall on same level, unspecified, initial encounter
CPT/HCPCS: J2405; J7030; Q9967

== ENCOUNTER 2022-03-08 12:19 | Emergency (ER) | payer BC ==
[~2022-03-08] VITALS: Ht 180.3 cm; Wt 75.0 kg
[~2022-03-08 12:19] MED LIST changes: +DULCOLAX STOOL100 MG PO; +PRIL40 PO
[2022-03-08 12:23] VITALS: TEMP 97.9
[2022-03-08 12:52] LABS: BASO # 0.1 K/mm3 (0.0-0.2); BASO % 0.8 % (0.0-2.0); EOS # 0.1 K/mm3 (0.0-0.7); EOS % 1.4 % (0.0-4.0); GRAN # 4.2 K/mm3 (1.4-6.5); GRAN % 67.6 % (42.2-75.2); LYMPH # 1.2 K/mm3 (1.2-3.4); LYMPH % 19.8 % (20.0-51.0); MEAN CELL VOLUME 64 fl (80.0-100.0); MEAN CORPUSCULAR HGB CONC 27 g/dl (33.0-37.0); MEAN PLATELET VOLUME 10.3 fl (7.4-10.4); MONO # 0.6 K/mm3 (0.1-0.6); MONO % 9.3 % (1.7-9.3); PLATELET COUNT 261 K/mm3 (130-400); RED BLOOD COUNT 4.47 M/mm3 (4.20-5.60); REDCELL DISTRIBUTION WIDTH-CV 17.9 % (11.5-14.5)
[2022-03-08 12:54] LABS: ALANINE AMINOTRANSFERASE 13 U/L (0-55); ALBUMIN 4.3 gm/dL (3.5-5.0); ALKALINE PHOSPHATASE 47 U/L (40-150); ANION GAP 8 mmol/L (7-16); AST,SGOT 11 U/L (5-34); BILIRUBIN,TOTAL 0.4 mg/dL (0.2-1.2); BLOOD UREA NITROGEN 14 mg/dL (9-21); CALCIUM 8.9 mg/dL (8.4-10.2); CARBON DIOXIDE 24 mmol/L (22-29); CHLORIDE 105 mmol/L (98-107); CREATININE, serum 0.71 mg/dL (0.72-1.25); GLUCOSE 114 mg/dL (70-99); POTASSIUM 3.5 mmol/L (3.5-4.5); SODIUM 137 mmol/L (136-145); TOTAL PROTEIN 7.4 gm/dL (6.2-8.1)
[2022-03-08 13:01] LABS: TROPONIN-I < 0.010 ng/mL (0.00-0.033)
[2022-03-08 13:02] LABS: HEMATOCRIT 28.8 % (42.0-52.0); HEMOGLOBIN 7.9 g/dl (13.5-18.0); MEAN CORPUSCULAR HEMOGLOBIN 18 pg (27-31)
[2022-03-08 13:07] VITALS: BP 122/82; PULSE 67
== END 2022-03-08 13:10 | disposition home or self-care (01) ==
LOC: COL.ER 12:19
PROVIDERS: Emergency Medicine
DX: D64.9 Anemia, unspecified (principal); Z20.822 Contact with and (suspected) exposure to COVID-19
CPT/HCPCS: J7030

== ENCOUNTER 2022-03-24 11:50 | Day surgery (SDC) | payer BC ==
[2022-03-23 13:46] LABS: MEAN CELL VOLUME 63 fl (80.0-100.0); MEAN CORPUSCULAR HGB CONC 27 g/dl (33.0-37.0); MEAN PLATELET VOLUME 10.3 fl (7.4-10.4); PLATELET COUNT 288 K/mm3 (130-400); REDCELL DISTRIBUTION WIDTH-CV 18.2 % (11.5-14.5)
[2022-03-23 13:47] LABS: HEMATOCRIT 32.1 % (42.0-52.0); HEMOGLOBIN 8.7 g/dl (13.5-18.0); MEAN CORPUSCULAR HEMOGLOBIN 17 pg (27-31)
[2022-03-23 14:07] LABS: CALCIUM 9.4 mg/dL (8.4-10.2); CREATININE, serum 0.8 mg/dL (0.72-1.25); POTASSIUM 4.4 mmol/L (3.5-4.5)
[~2022-03-24] VITALS: Ht 180.3 cm; Wt 73.1 kg
[2022-03-24] MEDS ORDERED: B-12 500 MCG PO (12:45)
[2022-03-24] MEDS ORDERED: MASON NATURAL2000 IU PO (12:48)
[2022-03-24] MEDS ORDERED: ZYRTEC 10MG10 MG PO (12:48)
[2022-03-24 12:54] VITALS: BP 123/63; PULSE 58; TEMP 97.8
[2022-03-24] MEDS ORDERED: MOTRIN 600600 MG/TAB PO (15:20)
[2022-03-24] MEDS ORDERED: PERCOCET 325 MG1 TA2 PO (15:20)
[2022-03-24] MEDS ORDERED: ZOFRAN ODT4 MG PO (15:21)
[2022-03-24 17:20] VITALS: BP 121/56; PULSE 60; TEMP 98.3
--- NOTE | 2022-03-24 17:20 | NUR ---
PT TO BAY 2 PER CART FROM PACU. RECEIVED REPORT. VS OBTAINED. CALL LIGHT WITHIN REACH. PT TOLERATING PEPSI WITHOUT DIFFICULTY. PT DENIES ANY NEEDS AT THIS TIME. WILL CONTINUE TO MONITOR.
[2022-03-24 17:35] VITALS: BP 106/43; PULSE 55
[2022-03-24 17:50] VITALS: BP 105/39; PULSE 48
[2022-03-24 18:00] VITALS: BP 103/46; PULSE 49
[2022-03-24 18:04] VITALS: BP 112/65; PULSE 62; TEMP 98.3
--- NOTE | 2022-03-24 18:49 | NUR ---
1800 Report received from HANG Escalante. 1810 Pt requests water. Pepsi taken without complication. Pt states discomfort in sitting and prefers to lay on side or abdomen. 1815 Pt attempts to void without success. 1837 Discharge information given to pt. All questions answered to his satisfaction. Pt understands to call Dr. Almaraz's office tomorrow for a 3-week follow-up appt. 1838 Pt again attempts to void without success. 1840 Bladder scan performed which shows 79 mL in bladder. Pt states that pressure on his bladder makes him feel like he needs to urinate. 1845 Pt attempts to void again, and this time has success. 1849 Pt transported out of hospital via wheelchair and this RN assist to private vehicle driven by family member.
[2022-03-31] MEDS ORDERED: PERCOCET 325 MG1 TA2 PO (12:03)
== END 2022-03-24 18:49 | disposition home or self-care (01) ==
LOC: SDCO 11:50
PROVIDERS: Surgery
DX: K64.2 Third degree hemorrhoids (principal); K64.4 Residual hemorrhoidal skin tags; F17.210 Nicotine dependence, cigarettes, uncomplicated; D64.9 Anemia, unspecified
CPT/HCPCS: J0690; J1100; J1170; J1885; J2250; J2405; J2704; J3010; J7120